=== PATIENT | male | born 1985 | race African-American/Black ===

== ENCOUNTER 2019-08-28 18:59 | Emergency (ER) | payer SELFPAY ==
[~2019-08-28] VITALS: Ht 175.3 cm; Wt 86.4 kg
[2019-08-28 19:53] LABS: APPEARANCE,URINE CLOUDY (CLEAR); GLUCOSE, URINE (UA) NEGATIVE (NEGATIVE); KETONES,URINE 15 mg/dL (NEGATIVE); LEUKOCYTE ESTERASE ,URINE MODERATE (NEGATIVE); NITRATE,URINE NEGATIVE (NEGATIVE); OCCULT BLOOD,URINE TRACE (NEGATIVE); PROTEIN,URINE TRACE (NEGATIVE)
[2019-08-28 19:58] LABS: BILIRUBIN,URINE PRELIM. POSITIVE (NEGATIVE)
[2019-08-28 20:05] LABS: BACTERIA,URINE Many /HPF (None Seen); RBC,URINE 0-2 /HPF (0-2); WBC,URINE >100 /HPF (0-5)
[2019-08-28 20:06] LABS: MUCUS,URINE Many LPF (None Seen); SQUAMOUS EPITHELIAL CELL,UR Few /LPF (None Seen)
[2019-08-28] MEDS ORDERED: AZITHROMYCIN 250 MG TABLET PO ONE (20:30)
[2019-08-28] MEDS ORDERED: CefTRIAXone SODIUM 1 GM/VIAL IM ONE (20:30)
[2019-08-28 21:10] VITALS: BP 142/88
== END 2019-08-28 21:25 | disposition home or self-care (01) ==
LOC: EMS 19:05
DX: N34.2 Other urethritis (principal); F12.90 Cannabis use, unspecified, uncomplicated
CPT/HCPCS: 81001; 87086; 87491; 87591; 96372; 99283; J0696